=== PATIENT | female | born 1950 | race African-American/Black ===

== ENCOUNTER 2022-10-06 21:09 | Emergency (ER) | payer OTHER ==
[~2022-10-06] VITALS: Ht 167.6 cm; Wt 83.9 kg
[2022-10-06 21:59] LABS: BASOPHILS % (AUTO) 0.5 % (0.0-2.0); EOSINOPHILS # (AUTO) 0.1 K/uL (0-0.4); EOSINOPHILS % (AUTO) 2.2 % (0.0-4.0); HEMATOCRIT 37.2 % (36-48); HEMOGLOBIN 12.5 g/dL (12.0-16.0); LYMPHOCYTES # (AUTO) 1.4 K/uL (2.5-16.5); LYMPHOCYTES % (AUTO) 33.7 % (20.5-51.1); MEAN CORPUSCULAR HEMOGLOBIN 30 pg (27-31); MEAN CORPUSCULAR HGB CONC 34 g/dL (33-37); MONOCYTES # (AUTO) 0.5 K/uL (0.8-1.0); MONOCYTES % (AUTO) 11.4 % (1.7-9.3); NEUTROPHILS # (AUTO) 2.1 K/uL (1.8-7.7); NEUTROPHILS % (AUTO) 52.2 % (42.2-75.2); PLATELET COUNT (AUTO) 118 K/uL (140-450); RED BLOOD CELL COUNT(AUTO) 4.23 MIL/uL (4.20-5.40); RED CELL DISTRIBUTION WIDTH 15.1 % (11.6-13.7); WHITE BLOOD COUNT (AUTO) 4.1 K/uL (4.8-10.8)
--- NOTE | 2022-10-06 22:01 | NUR ---
PT TAKEN TO CT
[2022-10-06 22:11] VITALS: BP 144/103
[2022-10-06 22:22] LABS: ALBUMIN 4.1 g/dL (3.4-5.0); ANION GAP 7.8 (8-16); ASPARTATE AMINOTRANSFERASE 14 U/L (15-37); CARBON DIOXIDE 34.1 mmol/L (21-32); CHLORIDE 102 mmol/L (98-107); CREATININE 1.5 mg/dL (0.6-1.3); GLUCOSE 246 mg/dL (74-106); LIPASE 124 U/L (73-393); POTASSIUM 3.9 mmol/L (3.5-5.1); SODIUM SERUM 140 mmol/L (136-145); TOTAL BILIRUBIN 0.4 mg/dL (0.0-1.0); UREA NITROGEN, BLOOD 20 mg/dL (7-18)
--- NOTE | 2022-10-06 22:44 | NUR ---
UA OBTAINED AND SENT TO LAB
[2022-10-06] MEDS ORDERED: IBUPROFEN 800 MG TAB PO ONE (23:15)
[2022-10-06 23:24] LABS: BILIRUBIN,URINE NEGATIVE (NEGATIVE); BLOOD, URINE 2+ (NEGATIVE); COLOR,URINE YELLOW (YELLOW); LEUKOCYTE ESTERASE ,URINE TRACE (NEGATIVE); NITRITE, URINE POSITIVE (NEGATIVE); UGLUCOSE 3+ (NEGATIVE)
[2022-10-06 23:25] LABS: APPEARANCE,URINE HAZY (CLEAR)
[2022-10-06 23:30] LABS: RBC,URINE 20-50 /HPF (0-5); WBC,URINE 80-100 /HPF (0-5)
[2022-10-06] MEDS ORDERED: PHEN-1877 PO ×2 (23:31→23:42)
[2022-10-06] MEDS ORDERED: CIPR500T4 PO ×2 (23:31→23:42)
[2022-10-06] MEDS ORDERED: IBUP-2213 PO ×2 (23:35→23:42)
--- NOTE | 2022-10-06 23:44 | NUR ---
Patient discharged with v/s stable. Written and verbal after care instructions given and explained. Patient alert, oriented and verbalized understanding of instructions. Ambulatory with steady gait. All questions addressed prior to discharge. ID band removed. Patient advised to follow up with PMD. Rx of CIPRO PYRIDIUM given. Patient educated on indication of medication including possible reaction and side effects. Opportunity to ask questions provided and answered.
== END 2022-10-06 23:44 | disposition home or self-care (01) ==
LOC: MED 21:09
DX: N39.0 Urinary tract infection, site not specified (principal); E11.9 Type 2 diabetes mellitus without complications; I10 Essential (primary) hypertension; Z98.890 Other specified postprocedural states; Z79.899 Other long term (current) drug therapy; Z79.2 Long term (current) use of antibiotics
CPT/HCPCS: 36415; 80053; 81001; 83690; 85025; 87086; 99284

== ENCOUNTER 2022-11-10 12:10 | Emergency (ER) | payer OTHER, MEDICAID ==
[~2022-11-10] VITALS: Ht 162.6 cm; Wt 81.6 kg
[~2022-11-10 12:10] MED LIST: CIPR500T4 PO; IBUP-2213 PO; PHEN-1877 PO
[2022-11-10 12:55] VITALS: BP 170/95
[2022-11-10] MEDS ORDERED: KETOROLAC 30 MG/ML VIAL IM ONE (13:35)
--- NOTE | 2022-11-10 13:38 | NUR ---
X-RAY AT BEDSIDE.
[2022-11-10 13:45] LABS: BILIRUBIN,URINE NEGATIVE (NEGATIVE); BLOOD, URINE TRACE-I (NEGATIVE); COLOR,URINE YELLOW (YELLOW); LEUKOCYTE ESTERASE ,URINE 1+ (NEGATIVE); NITRITE, URINE NEGATIVE (NEGATIVE); PH,URINE 7.5 (5.0-9.0); UGLUCOSE 3+ (NEGATIVE)
[2022-11-10 13:48] LABS: APPEARANCE,URINE CLOUDY (CLEAR)
--- NOTE | 2022-11-10 13:52 | NUR ---
71 Y/O F BIB SELF C/O NON TRAUMATIC R LEG PAIN 8/10 FOR ONE WEEK, BLADDER INCONTINENCE FOR OVER A MONTH NOW, SEEN HERE BEFORE DX UTI. NKA
[2022-11-10 14:04] LABS: WBC,URINE 20-60 /HPF (0-5)
[2022-11-10] MEDS ORDERED: CEPH-588 PO (14:16)
[2022-11-10] MEDS ORDERED: ACET-8905 PO (14:16)
--- NOTE | 2022-11-10 14:38 | NUR ---
Patient discharged with v/s stable. Written and verbal after care instructions given and explained. Patient alert, oriented and verbalized understanding of instructions. Ambulatory with steady gait. All questions addressed prior to discharge. ID band removed. Patient advised to follow up with PMD. Rx of HYDROCODONE/ACETAMINOPHEN, CEPHALEXIN given. Opportunity to ask questions provided and answered.
--- NOTE | 2022-11-10 16:19 | NUR ---
The patient's care was reviewed and supervised by [place] 05 CHUY, RN.
--- NOTE | 2022-11-10 16:20 | NUR ---
The patient's care was reviewed and supervised by [place] 05 CHUY, RN.
== END 2022-11-10 14:37 | disposition home or self-care (01) ==
LOC: MED 12:10
DX: N39.0 Urinary tract infection, site not specified (principal); M25.551 Pain in right hip; K43.9 Ventral hernia without obstruction or gangrene; E11.9 Type 2 diabetes mellitus without complications; Z98.890 Other specified postprocedural states; I10 Essential (primary) hypertension; Z79.899 Other long term (current) drug therapy; Z79.2 Long term (current) use of antibiotics; Z79.891 Long term (current) use of opiate analgesic; Z79.1 Long term (current) use of non-steroidal anti-inflammatories (NSAID)
CPT/HCPCS: 73502; 81001; 87086; 96372; 99284; J1885; Q0092

== ENCOUNTER 2022-12-14 13:19 | Emergency (ER) | payer OTHER ==
[~2022-12-14] VITALS: Ht 167.6 cm; Wt 90.9 kg
[~2022-12-14 13:19] MED LIST changes: +ACET-8905 PO; +CEPH-588 PO
[2022-12-14 14:00] VITALS: BP 166/91
--- NOTE | 2022-12-14 14:37 | NUR ---
AMBULATED TO BED IN NO DISTRESS.
[2022-12-14 15:19] LABS: BASOPHILS % (AUTO) 0.9 % (0.0-2.0); EOSINOPHILS # (AUTO) 0.1 K/uL (0-0.4); EOSINOPHILS % (AUTO) 2.2 % (0.0-4.0); HEMATOCRIT 36.9 % (36-48); HEMOGLOBIN 12.3 g/dL (12.0-16.0); LYMPHOCYTES # (AUTO) 1.4 K/uL (2.5-16.5); LYMPHOCYTES % (AUTO) 31.9 % (20.5-51.1); MEAN CORPUSCULAR HEMOGLOBIN 30 pg (27-31); MEAN CORPUSCULAR HGB CONC 33 g/dL (33-37); MEAN CORPUSCULAR VOLUME 88.8 fL (80-94); MONOCYTES # (AUTO) 0.5 K/uL (0.8-1.0); MONOCYTES % (AUTO) 10.8 % (1.7-9.3); NEUTROPHILS # (AUTO) 2.3 K/uL (1.8-7.7); NEUTROPHILS % (AUTO) 54.2 % (42.2-75.2); PLATELET COUNT (AUTO) 114 K/uL (140-450); RED BLOOD CELL COUNT(AUTO) 4.16 MIL/uL (4.20-5.40); RED CELL DISTRIBUTION WIDTH 14.9 % (11.6-13.7); WHITE BLOOD COUNT (AUTO) 4.3 K/uL (4.8-10.8)
[2022-12-14 15:49] LABS: ALBUMIN 3.5 g/dL (3.4-5.0); ANION GAP 11.4 (8-16); ASPARTATE AMINOTRANSFERASE 20 U/L (15-37); CARBON DIOXIDE 30.7 mmol/L (21-32); CHLORIDE 100 mmol/L (98-107); CREATININE 1.2 mg/dL (0.6-1.3); GLUCOSE 317 mg/dL (74-106); POTASSIUM 4.1 mmol/L (3.5-5.1); SODIUM SERUM 138 mmol/L (136-145); TOTAL BILIRUBIN 0.5 mg/dL (0.0-1.0); UREA NITROGEN, BLOOD 15 mg/dL (7-18)
[2022-12-14] MEDS ORDERED: MECL-303 PO (18:39)
[2022-12-14 18:55] VITALS: BP 141/76
--- NOTE | 2022-12-14 18:55 | NUR ---
Patient discharged with v/s stable. Written and verbal after care instructions given and explained. Patient alert, oriented and verbalized understanding of instructions. Ambulatory with steady gait. All questions addressed prior to discharge. ID band removed. Patient advised to follow up with PMD. Rx of MECLIZINE given. Patient educated on indication of medication including possible reaction and side effects. Opportunity to ask questions provided and answered. IV D/C'D. CD OF CT SCAN PROVIDED TO PATIENT.
[2022-12-14 20:30] LABS: APPEARANCE,URINE CLEAR (CLEAR); BILIRUBIN,URINE NEGATIVE (NEGATIVE); BLOOD, URINE NEGATIVE (NEGATIVE); COLOR,URINE YELLOW (YELLOW); LEUKOCYTE ESTERASE ,URINE NEGATIVE (NEGATIVE); NITRITE, URINE NEGATIVE (NEGATIVE); PH,URINE 6.5 (5.0-9.0); UGLUCOSE 2+ (NEGATIVE)
== END 2022-12-14 18:55 | disposition home or self-care (01) ==
LOC: MED 13:19
DX: R42 Dizziness and giddiness (principal); R51.9 Headache, unspecified; H92.01 Otalgia, right ear; E11.65 Type 2 diabetes mellitus with hyperglycemia; I10 Essential (primary) hypertension; Z79.4 Long term (current) use of insulin; Z79.899 Other long term (current) drug therapy
CPT/HCPCS: 36415; 70450; 70496; 70498; 80053; 81003; 84484; 85025; 93005; 99285; Q9967

== ENCOUNTER 2023-07-31 12:42 | Emergency (ER) | payer OTHER ==
[~2023-07-31] VITALS: Ht 167.6 cm; Wt 88.9 kg
[~2023-07-31 12:42] MED LIST changes: +MECL-303 PO
[2023-07-31 12:44] VITALS: BP 137/76; PULSE 86; RESP 18; TEMP 98.6; O2SAT 98
[2023-07-31 14:25] LABS: BASOPHILS % (AUTO) 0.3 % (0.0-2.0); EOSINOPHILS % (AUTO) 0.1 % (0.0-4.0); HEMATOCRIT 38.3 % (36-48); LYMPHOCYTES # (AUTO) 1.1 K/uL (2.5-16.5); LYMPHOCYTES % (AUTO) 23.3 % (20.5-51.1); MEAN CORPUSCULAR HEMOGLOBIN 31 pg (27-31); MEAN CORPUSCULAR HGB CONC 34 g/dL (33-37); MEAN CORPUSCULAR VOLUME 90.2 fL (80-94); MONOCYTES # (AUTO) 0.7 K/uL (0.8-1.0); MONOCYTES % (AUTO) 16.6 % (1.7-9.3); NEUTROPHILS # (AUTO) 2.7 K/uL (1.8-7.7); NEUTROPHILS % (AUTO) 59.7 % (42.2-75.2); PLATELET COUNT (AUTO) 104 K/uL (140-450); RED BLOOD CELL COUNT(AUTO) 4.25 MIL/uL (4.20-5.40); RED CELL DISTRIBUTION WIDTH 14.7 % (11.6-13.7); WHITE BLOOD COUNT (AUTO) 4.5 K/uL (4.8-10.8)
[2023-07-31 14:33] LABS: FLU A ANTIGEN negative (NEGATIVE); FLU B ANTIGEN negative (NEGATIVE)
[2023-07-31 14:43] LABS: ANION GAP 9.9 (8-16); CALCIUM 9.5 mg/dL (8.5-10.1); CARBON DIOXIDE 30.2 mmol/L (21-32); CHLORIDE 98 mmol/L (98-107); CREATININE 1.2 mg/dL (0.6-1.3); GLUCOSE 304 mg/dL (74-106); POTASSIUM 4.1 mmol/L (3.5-5.1); SODIUM SERUM 134 mmol/L (136-145); UREA NITROGEN, BLOOD 18 mg/dL (7-18)
[2023-07-31] MEDS ORDERED: ACET-11169 PO (15:17)
[2023-07-31] MEDS ORDERED: GUAI118L81 PO (15:17)
[2023-07-31 15:52] VITALS: BP 125/65; PULSE 86; RESP 18; TEMP 98.6; O2SAT 98
== END 2023-07-31 15:40 | disposition home or self-care (01) ==
LOC: MED 12:42
DX: U07.1 COVID-19 (principal); E11.9 Type 2 diabetes mellitus without complications; I10 Essential (primary) hypertension; Z79.899 Other long term (current) drug therapy; Z79.2 Long term (current) use of antibiotics; Z79.1 Long term (current) use of non-steroidal anti-inflammatories (NSAID)
CPT/HCPCS: 36415; 71045; 80048; 85025; 99284

== ENCOUNTER 2023-08-15 13:05 | Emergency (ER) | payer OTHER ==
[~2023-08-15] VITALS: Ht 167.6 cm; Wt 79.4 kg
[~2023-08-15 13:05] MED LIST changes: +ACET-11169 PO; +GUAI118L81 PO
[2023-08-15 13:38] VITALS: BP 135/87; PULSE 68; RESP 16; TEMP 98; O2SAT 97
[2023-08-15] MEDS ORDERED: ALBU0.0912 IH (15:49)
[2023-08-15] MEDS ORDERED: BENZ200C4 PO (15:49)
[2023-08-15 16:44] LABS: FLU A ANTIGEN negative (NEGATIVE); FLU B ANTIGEN NEGATIVE (NEGATIVE); RSV NEGATIVE (NEGATIVE)
== END 2023-08-15 15:56 | disposition home or self-care (01) ==
LOC: MED 13:05
DX: J06.9 Acute upper respiratory infection, unspecified (principal); Z20.822 Contact with and (suspected) exposure to COVID-19; I10 Essential (primary) hypertension; E11.9 Type 2 diabetes mellitus without complications; Z79.899 Other long term (current) drug therapy; Z79.4 Long term (current) use of insulin
CPT/HCPCS: 71046; 87420; 99284

== ENCOUNTER 2024-04-15 18:25 | Emergency (ER) | payer OTHER ==
[~2024-04-15] VITALS: Ht 157.5 cm; Wt 90.0 kg
[~2024-04-15 18:25] MED LIST changes: +ALBU0.0912 IH; +BENZ200C4 PO
[2024-04-15 18:38] VITALS: BP 181/91; PULSE 75; RESP 18; TEMP 98.1; O2SAT 96
[2024-04-15 19:08] VITALS: TEMP 98.1
[2024-04-15 20:09] LABS: BASOPHILS % (AUTO) 0.4 % (0.0-2.0); EOSINOPHILS % (AUTO) 1.1 % (0.0-4.0); HEMATOCRIT 34.1 % (36-48); HEMOGLOBIN 11.4 g/dL (12.0-16.0); LYMPHOCYTES % (AUTO) 21.7 % (20.5-51.1); MEAN CORPUSCULAR HEMOGLOBIN 30 pg (27-31); MEAN CORPUSCULAR HGB CONC 34 g/dL (33-37); MEAN CORPUSCULAR VOLUME 90.7 fL (80-94); MONOCYTES # (AUTO) 0.5 K/uL (0.8-1.0); MONOCYTES % (AUTO) 11.9 % (1.7-9.3); NEUTROPHILS % (AUTO) 64.9 % (42.2-75.2); PLATELET COUNT (AUTO) 104 K/uL (140-450); RED BLOOD CELL COUNT(AUTO) 3.76 MIL/uL (4.20-5.40); RED CELL DISTRIBUTION WIDTH 15.2 % (11.6-13.7); WHITE BLOOD COUNT (AUTO) 4.6 K/uL (4.8-10.8)
[2024-04-15] MEDS: ACETAMINOPHEN EXTRA STRENGTH 500 MG TAB PO ONE (20:09)
[2024-04-15 20:26] LABS: ALANINE AMINOTRANSFERASE 25 U/L (12-78); ALBUMIN 3.1 g/dL (3.4-5.0); ALKALINE PHOSPHATASE 66 U/L (50-136); ANION GAP 6.6 (8-16); ASPARTATE AMINOTRANSFERASE 13 U/L (15-37); CALCIUM 9.2 mg/dL (8.5-10.1); CARBON DIOXIDE 32.4 mmol/L (21-32); CHLORIDE 101 mmol/L (98-107); GLUCOSE 195 mg/dL (74-106); LIPASE 26 U/L (16-77); SODIUM SERUM 136 mmol/L (136-145); TOTAL BILIRUBIN 0.4 mg/dL (0.0-1.0); TOTAL PROTEIN, SERUM 8.6 g/dL (6.4-8.2); UREA NITROGEN, BLOOD 16 mg/dL (7-18)
[2024-04-15 21:50] LABS: APPEARANCE,URINE CLEAR (CLEAR); BILIRUBIN,URINE NEGATIVE (NEGATIVE); BLOOD, URINE NEGATIVE (NEGATIVE); COLOR,URINE YELLOW (YELLOW); LEUKOCYTE ESTERASE ,URINE NEGATIVE (NEGATIVE); NITRITE, URINE NEGATIVE (NEGATIVE); PROTEIN,URINE NEGATIVE (NEGATIVE); UGLUCOSE TRACE (NEGATIVE); UROBILINOGEN,URINE 0.2 EU/dL (0.2 - 1)
[2024-04-15] MEDS: hydrALAZINE 20 MG/ML VIAL IVP ONE (22:12)
[2024-04-16] MEDS: LIDOCAINE 4% 1 EA PATCH TP ONE (01:01)
[2024-04-16] MEDS: hydrALAZINE 20 MG/ML VIAL IVP ONE (01:25)
[2024-04-16] MEDS: FAMOTIDINE 20 MG/2 ML VIAL IVP ONE (01:25)
[2024-04-16] MEDS ORDERED: ACET500T99 PO (01:51)
[2024-04-16] MEDS ORDERED: LID5T TP (01:51)
[2024-04-16] MEDS ORDERED: FAMO-90 PO (01:51)
[2024-04-16 01:59] VITALS: BP 146/124; PULSE 81; RESP 16; O2SAT 96
== END 2024-04-16 02:06 | disposition home or self-care (01) ==
LOC: MED 18:25
DX: R10.11 Right upper quadrant pain (principal); D64.9 Anemia, unspecified; M54.50 Low back pain, unspecified; R07.9 Chest pain, unspecified; E11.9 Type 2 diabetes mellitus without complications; I10 Essential (primary) hypertension; Z90.49 Acquired absence of other specified parts of digestive tract; Z98.890 Other specified postprocedural states; Z79.899 Other long term (current) drug therapy
CPT/HCPCS: 36415; 71045; 74177; 80053; 81003; 83690; 84484; 85025; 93005; 96374; 99285; J0360; Q0092; Q9967; J3490